=== PATIENT | female | born 1945 | race Caucasian/White ===

== ENCOUNTER 2021-09-25 08:05 | Day surgery (SDC) | payer MEDICARE, OTHER ==
[2021-09-25] VITALS (10 sets, daily range): BP systolic 123–192; BP diastolic 48–107; PULSE 69–83; TEMP 97.7–98.4
[~2021-09-25] VITALS: Ht 157.5 cm; Wt 95.1 kg
[~2021-09-25 08:05] MED LIST: ASPIRIN E.C. 8181 MG PO; BENADRYL 50M50 MG/ML; BETAPACE 120MG120 MG PO; BETAPACE 80MG80 MG PO; BETAPACE AF160 MG PO; BETAPACEAF120 PO; CARDIZEM CD 24240 MG PO; COLACE 100100 MG/CAP PO; CRESTOR 10MG10 MG PO; DESYREL 50MG50 MG PO; DILAUDID 2MG TAB2 MG PO; FERROUS SU325 MG/TAB PO; GLUCAGEN1 MG IJ; GLUCOPHAGE1000 MG PO; HCTZ 25MG TAB25 MG PO; HEPARIN LOCK FLU5 M1 IV; HUMALOG 75/2100 U/ML SQ; HUMALOG100 U/ML SC; HYZAAR 25 MG-101 TAB PO; IMDUR 30MG30 MG/TAB PO; IMDUR 60MG60 MG/TAB PO; IMODIUM 2MG CAPS2 MG PO; INSHUMULINN SQ; INVANZ INJ1 G/VIAL IV; IPRATROPIUM BROM3 M1 IH; IRON325 MG PO; KLONOPIN 1MG1 MG PO; KLONOPIN2 MG PO; LANTUS100 U/ML SC; LANTUS100 U/ML SQ; LASIX 20MG TABL20 MG PO; LASIX 40MG40 MG/4 ML IV; LEVAQUIN 750MG750 M1 PO; LEVAQUIN 7750 MG/151 IV; LEVEMIR FLEX100 U/ML SQ; LIPITOR20 MG PO; LOVENOX 4040 MG/0.4 SQ; MAG-OX 400400 MG/TAB PO; MAGNESIUM200 MG PO; MOBIC15 MG PO; MUCINEX 60600 MG/TA1 PO; MYSOLINE 5050 MG/TAB PO; NEB; NEURONTIN100 MG/CAP PO; NEURONTIN300 MG/CAP PO; NITROSTAT0.4 MG/TAB SL; NORVASC 5MG5 MG/TAB PO; NOVLOG SQ; NOVOLOG MIX 70/33 ML SQ; NS INT FLUSH 1010 ML IV; NYAMYC100000 U/G TP; OMEGA 31000 MG PO; OMNICEF 300MG300 MG PO; PERFOROMIS20 MCG/2 M IH; PREDNISONE20 MG PO; PRILOSEC 20MG20 MG PO; PROAIR HFA0.09 MG/AC IH; PROTONIX 40MG T40 MG PO; REQUIP2 MG PO; ROCEPHIN VIA1 G/VIAL IJ; RT ADVAIR 128 DISKUS IH; RT ADVAIR 228 DISKUS IH; RT ADVAIR 528 DISKUS IH; RT ALBUTER2.5 MG/0.5 IH; SOLU-MEDRO125 MG/21; STOOL SOFTENER100 M2 PO; TRILIPIX 135MG PO; TYLENOL 325MG325 MG PO; ULTRAM 50MG TAB50 MG PO; VICTOZA6 MG/ML SC; VITAMIN D 1001000 IU PO; VITAMIN D1000 IU PO; VITAMIN D31000 I1 PO; ZESTRIL40 MG PO; ZOFRAN INJ4 MG/2 ML IV
[2021-09-25 08:47] LABS: HEMATOCRIT 31.7 % (37.0-47.0); HEMOGLOBIN 10.2 g/dl (12.5-16.0); MEAN CELL VOLUME 93 fl (80.0-100.0); MEAN CORPUSCULAR HEMOGLOBIN 30 pg (27-31); MEAN CORPUSCULAR HGB CONC 32 g/dl (33.0-37.0); MEAN PLATELET VOLUME 9.8 fl (7.4-10.4); PLATELET COUNT 196 K/mm3 (130-400); REDCELL DISTRIBUTION WIDTH-CV 15.2 % (11.5-14.5)
[2021-09-25 08:59] LABS: CALCIUM 9.4 mg/dL (8.4-10.2); CREATININE, serum 1.22 mg/dL (0.57-1.11); POTASSIUM 4.3 mmol/L (3.5-4.5)
--- NOTE | 2021-09-25 11:19 | NUR ---
ANESTHESIA AT BEDSIDE FOR JEFERSON. SEE ANESTHESIA RECORD FOR MEDICATIONS AND ASSESSMENT. SEE MERGE FOR MEDICATION ADMINISTRATION AND INTRA/POST PROCEDURE SEDATION ASSESSMENTS FOR CATH.
--- NOTE | 2021-09-25 17:13 | NUR ---
Pt escorted out via wheelchair by CindyICU nurse.
--- NOTE | 2021-09-25 18:46 | NUR ---
PATIENT CAME BACK FROM PROCEDURE AT APPROX 1130; PATIENT WAS A&O AND LETHARGIC BUT STABLE. VITAL SIGNS WERE WNL LIMITS AND REMAINED WNL FOR THE DURATION. PATIENT WAS ABLE TO ADVANCE HER DIET AND ATE LUNCH AND DRANK LIQUIDS WITH NO DIFFICULTY. PATIENT LEFT BY WHEELCHAIR WITH THIS NURSE, ACCOMPANIED BY HER .
== END 2021-09-25 18:13 ==
LOC: COL.CAR 08:05
PROVIDERS: Internal Medicine Cardiovascular Disease
DX: I25.10 Atherosclerotic heart disease of native coronary artery without angina pectoris (principal); I35.0 Nonrheumatic aortic (valve) stenosis; G25.81 Restless legs syndrome; R06.02 Shortness of breath; R94.39 Abnormal result of other cardiovascular function study; Z79.899 Other long term (current) drug therapy; Z99.81 Dependence on supplemental oxygen
CPT/HCPCS: J1644; J2370; J2704; Q9967

== ENCOUNTER 2021-12-11 03:17 | Inpatient (IN) | payer MEDICARE, OTHER ==
[~2021-12-11] VITALS: Ht 154.9 cm; Wt 87.9 kg
[2021-12-11 08:57] VITALS: BP 100/37; PULSE 82; TEMP 98.6
[2021-12-11] MEDS ORDERED: BENICAR40 MG PO (10:43)
[2021-12-11] MEDS ORDERED: ASPIRIN 81M81 MG/TA2 PO (10:44)
[2021-12-11] MEDS ORDERED: ZOFRAN ODT4 MG PO (10:45)
[2021-12-11] MEDS ORDERED: DULCOLAX STOOL100 MG PO (10:45)
[2021-12-11] MEDS ORDERED: LEVEMIR100 U/ML SQ (10:46)
[2021-12-11] MEDS ORDERED: PROTONIX 40MG T40 MG PO (10:46)
[2021-12-11 11:07] VITALS: BP 101/42; PULSE 72; TEMP 98.6
[2021-12-11] MEDS ORDERED: HCTZ 25MG TAB25 MG PO (12:01)
[2021-12-11 12:09] LABS: MEAN CELL VOLUME 95 fl (80.0-100.0); MEAN CORPUSCULAR HGB CONC 32 g/dl (33.0-37.0); MEAN PLATELET VOLUME 9.7 fl (7.4-10.4); PLATELET COUNT 214 K/mm3 (130-400); RED BLOOD COUNT 3.02 M/mm3 (4.10-5.30)
[2021-12-11 12:11] LABS: HEMATOCRIT 28.8 % (37.0-47.0); HEMOGLOBIN 9.1 g/dl (12.5-16.0); MEAN CORPUSCULAR HEMOGLOBIN 30 pg (27-31)
[2021-12-11 12:27] LABS: BAND 19 % (0-10); NEUTROPHILS 75 % (42.0-75.2); PLATELET ESTIMATE NORMAL (NORMAL)
[2021-12-11 12:28] LABS: ALBUMIN 2.4 gm/dL (3.4-4.8); BILIRUBIN,TOTAL 5.1 mg/dL (0.2-1.2); CALCIUM 8.5 mg/dL (8.4-10.2); CREATININE, serum 1.47 mg/dL (0.57-1.11); POTASSIUM 4.3 mmol/L (3.5-4.5); TOTAL PROTEIN 5.9 gm/dL (6.2-8.1)
[2021-12-11 16:05] VITALS: BP 103/29; PULSE 69; TEMP 97.5
[2021-12-11 17:21] VITALS: BP 118/44
--- NOTE | 2021-12-11 17:22 | NUR ---
RN notified by PCT of low diastolic pressure. This RN took the BP manually and got a reading of 118/44.
--- NOTE | 2021-12-11 17:45 | NUR ---
Report given to Vandana at [facility].
--- NOTE | 2021-12-11 18:13 | NUR ---
Tele remvoed by this RN. Report given to [facility]. Patient on their way to [facility].
== END 2021-12-11 18:10 | disposition short-term general hospital (02) | DRG 444 ==
LOC: MEDICAL 03:17
PROVIDERS: Physician Assistant; ADMIT Internal Medicine
DX: K80.40 Calculus of bile duct with cholecystitis, unspecified, without obstruction (principal); K85.90 Acute pancreatitis without necrosis or infection, unspecified; N39.0 Urinary tract infection, site not specified; J44.9 Chronic obstructive pulmonary disease, unspecified; I10 Essential (primary) hypertension; E11.40 Type 2 diabetes mellitus with diabetic neuropathy, unspecified; K21.9 Gastro-esophageal reflux disease without esophagitis; E78.5 Hyperlipidemia, unspecified; I35.0 Nonrheumatic aortic (valve) stenosis; D64.9 Anemia, unspecified; Z85.118 Personal history of other malignant neoplasm of bronchus and lung; Z86.73 Personal history of transient ischemic attack (TIA), and cerebral infarction without residual deficits; Z79.82 Long term (current) use of aspirin; Z79.4 Long term (current) use of insulin
CPT/HCPCS: 99223-AI; J0696; J2270; J7030

== ENCOUNTER 2024-03-31 13:21 | Observation (INO) | payer MEDICARE, OTHER ==
[~2024-03-31] VITALS: Ht 152.4 cm; Wt 77.3 kg
[~2024-03-31 13:21] MED LIST changes: +ASPIRIN 81M81 MG/TA2 PO; +BENICAR40 MG PO; +DULCOLAX STOOL100 MG PO; +LEVEMIR100 U/ML SQ; -NEURONTIN300 MG/CAP PO; +NEURONTIN400 MG/CAP PO; +ZOFRAN ODT4 MG PO
[2024-03-31 14:09] LABS: COLLECTION METHOD CATHETER
[2024-03-31 14:13] LABS: URINE APPEARANCE CLEAR (CLEAR/HAZY); URINE BLOOD NEGATIVE (NEGATIVE); URINE COLOR YELLOW (YELLOW); URINE GLUCOSE NEGATIVE (NEGATIVE); URINE KETONE NEGATIVE (NEGATIVE); URINE NITRATE NEGATIVE (NEGATIVE); URINE PROTEIN(semi-quant) NEGATIVE (NEGATIVE); URINE UROBILINOGEN 0.2 E.U/dL (0.2-1.0)
[2024-03-31] MEDS ORDERED: NS 500 ML IV ONE ×2 (14:30→21:15)
[2024-03-31 14:48] LABS: BASO # 0.1 K/mm3 (0.0-0.2); BASO % 0.8 % (0.0-2.0); EOS # 0.3 K/mm3 (0.0-0.7); EOS % 3.1 % (0.0-4.0); GRAN # 5.6 K/mm3 (1.4-6.5); GRAN % 69.8 % (42.2-75.2); LYMPH # 1.3 K/mm3 (1.2-3.4); LYMPH % 16.5 % (20.0-51.0); MEAN CELL VOLUME 95 fl (80.0-100.0); MEAN CORPUSCULAR HGB CONC 30 g/dl (33.0-37.0); MEAN PLATELET VOLUME 10.2 fl (7.4-10.4); MONO # 0.8 K/mm3 (0.1-0.6); MONO % 9.5 % (1.7-9.3); PLATELET COUNT 171 K/mm3 (130-400); RED BLOOD COUNT 3.17 M/mm3 (4.10-5.30); REDCELL DISTRIBUTION WIDTH-CV 15.1 % (11.5-14.5)
[2024-03-31 14:51] LABS: HEMOGLOBIN 9.1 g/dl (12.5-16.0); MEAN CORPUSCULAR HEMOGLOBIN 29 pg (27-31)
[2024-03-31 15:06] LABS: ALBUMIN 3.5 g/dL (3.4-4.8); BILIRUBIN,TOTAL 0.2 mg/dL (0.2-1.2); C-REACTIVE PROTEIN 0.65 mg/dL (0.00-0.50); CALCIUM 9.4 mg/dL (8.4-10.2); CREATININE, serum 1.48 mg/dL (0.57-1.11); TOTAL PROTEIN 6.3 g/dl (6.2-8.1)
[2024-03-31 15:08] LABS: POTASSIUM 5.8 mEq/L (3.5-4.5)
[2024-03-31 15:11] LABS: TROPONIN-I 0.016 ng/mL (0.00-0.033)
[2024-03-31] MEDS ORDERED: NOVOLOG FLEX100 U/ML SQ (15:11)
[2024-03-31] MEDS ORDERED: IMODIUM 2MG CAPS2 MG PO (15:16)
[2024-03-31] MEDS ORDERED: KEPPRA1000 MG PO (15:18)
[2024-03-31] MEDS ORDERED: COZAAR100 MG PO (15:19)
[2024-03-31] MEDS ORDERED: MAG-OX 400400 MG/TAB PO (15:20)
[2024-03-31] MEDS ORDERED: GLUCOPHAGE1000 MG PO (15:21)
[2024-03-31] MEDS ORDERED: TOPROL XL 25MG25 MG PO (15:23)
[2024-03-31] MEDS ORDERED: REMERON SOLTAB15 MG PO (15:23)
[2024-03-31] MEDS ORDERED: MS CONTIN 115 MG/TAB PO (15:24)
[2024-03-31] MEDS ORDERED: MULTI-VITAMIN W1 TA1 PO (15:25)
[2024-03-31] MEDS ORDERED: NORVASC 5MG5 MG/TAB PO (15:27)
[2024-03-31] MEDS ORDERED: PLAVIX 75MG TAB75 MG PO (15:28)
[2024-03-31] MEDS ORDERED: LIPITOR 10MG10 MG PO (15:28)
[2024-03-31] MEDS ORDERED: RT ADVAIR HFA 2312 G IH (15:30)
[2024-03-31] MEDS ORDERED: K-DUR 10 MEQ T10 MEQ PO (15:31)
[2024-03-31] MEDS ORDERED: LASIX 20MG TABL20 MG PO (15:31)
[2024-03-31] MEDS ORDERED: REQUIP0.25 MG PO (15:34)
[2024-03-31] MEDS ORDERED: ZOLOFT 50MG50 MG PO (15:34)
[2024-03-31] MEDS ORDERED: Furosemide 40 MG/4 ML VIAL IV ONE (16:00)
[2024-03-31] MEDS ORDERED: Patiromer 8.4 G Oral Susp **** subs to Sodium Zirconium Cyclosilicate 10 G Oral Susp PO SCH (16:16)
[2024-03-31] MEDS ORDERED: Sodium Zirconium Cyclosilicate for Oral Susp 10 GM PACKET PO SCH (16:43)
--- NOTE | 2024-03-31 17:47 | NUR ---
Patient arrived from the ED by wheelchair, alert and oriented to self. Assessment intake completed.
[2024-03-31 17:50] VITALS: BP 148/83; PULSE 61; TEMP 96.5
[2024-03-31] MEDS ORDERED: Doxycycline Monohydrate 100 MG CAP PO SCH (18:07)
[2024-03-31] MEDS ORDERED: Clindamycin 150 MG CAP PO SCH (18:15)
[2024-03-31 18:20] VITALS: BP_SYST 148
[2024-03-31 21:00] VITALS: BP_SYST 106
--- NOTE | 2024-03-31 21:30 | NUR ---
Patient resting in bed. Denies any pain. Juice and snack provided. Lab for repeat potassium drawn from left forearm. Assessment complete. IV in left AC flushes easily without complications. Call light and personal items in reach. Bed in low position and bed alarm on.
[2024-03-31 21:59] VITALS: BP 106/64; PULSE 88; TEMP 98
[2024-03-31 22:58] LABS: CALCIUM 8.4 mg/dL (8.4-10.2); CREATININE, serum 1.31 mg/dL (0.57-1.11); POTASSIUM 5.4 mEq/L (3.5-4.5)
[2024-04-01] VITALS (13 sets, daily range): BP systolic 106–147; BP diastolic 51–81; PULSE 57–68; TEMP 97.4–98.3
[2024-04-01] MEDS ORDERED: traMADol 50 MG TAB PO PRN (02:45)
[2024-04-01] MEDS ORDERED: NS 500 ML IV ONE (03:00)
--- NOTE | 2024-04-01 07:10 | NUR ---
awake resting in bed, MARINE FITTER in and assisted her up to bathroom, bedside shift report received from BOBBY Menendez
[2024-04-01 07:14] LABS: BASO % 0.7 % (0.0-2.0); EOS # 0.3 K/mm3 (0.0-0.7); EOS % 4.7 % (0.0-4.0); GRAN # 3.4 K/mm3 (1.4-6.5); GRAN % 59.5 % (42.2-75.2); HEMATOCRIT 27.4 % (37.0-47.0); HEMOGLOBIN 8.6 g/dl (12.5-16.0); LYMPH # 1.2 K/mm3 (1.2-3.4); LYMPH % 21.7 % (20.0-51.0); MEAN CELL VOLUME 91 fl (80.0-100.0); MEAN CORPUSCULAR HEMOGLOBIN 29 pg (27-31); MEAN CORPUSCULAR HGB CONC 31 g/dl (33.0-37.0); MEAN PLATELET VOLUME 10.5 fl (7.4-10.4); MONO # 0.7 K/mm3 (0.1-0.6); MONO % 12.9 % (1.7-9.3); PLATELET COUNT 145 K/mm3 (130-400); REDCELL DISTRIBUTION WIDTH-CV 15.1 % (11.5-14.5)
[2024-04-01 07:25] LABS: ALBUMIN 2.9 g/dL (3.4-4.8); CALCIUM 8.3 mg/dL (8.4-10.2); CREATININE, serum 1.17 mg/dL (0.57-1.11); PHOSPHOROUS 5.2 mg/dL (2.3-4.7); POTASSIUM 5.2 mEq/L (3.5-4.5)
[2024-04-01] MEDS ORDERED: MIRTAZAPINE 15 MG PO SCH (08:40)
[2024-04-01] MEDS ORDERED: Atorvastatin 10 MG TAB PO SCH (08:40)
[2024-04-01] MEDS ORDERED: rOPINIRole 0.5 MG TAB PO SCH (08:43)
[2024-04-01] MEDS ORDERED: Albuterol 0.021% Neb Soln 0.63 MG/3 ML UD IH PRN (08:45)
[2024-04-01] MEDS ORDERED: Loperamide 2 MG CAP PO PRN (08:45)
[2024-04-01] MEDS ORDERED: Albuterol/Ipratropium 3 MG-0.5 MG/3 ML Neb Soln IH PRN (08:45)
--- NOTE | 2024-04-01 08:47 | NUR ---
appears to be dozing, Dr Minor in to see patient, will order her breakfst and encourage her to eat
[2024-04-01] MEDS ORDERED: Primidone 50 MG TAB PO SCH (09:00)
[2024-04-01] MEDS ORDERED: Furosemide 20 MG TAB PO SCH (09:00)
[2024-04-01] MEDS ORDERED: Sertraline 50 MG TAB PO SCH (09:00)
[2024-04-01] MEDS ORDERED: Clopidogrel 75 MG TAB PO SCH (09:00)
[2024-04-01] MEDS ORDERED: Gabapentin 400 MG CAP PO SCH (09:00)
[2024-04-01] MEDS ORDERED: amLODIPine 5 MG TAB PO SCH (09:00)
[2024-04-01] MEDS ORDERED: Magnesium Oxide 400 MG TAB PO SCH (09:00)
[2024-04-01] MEDS ORDERED: levETIRAcetam 500 MG TAB PO SCH (09:00)
--- NOTE | 2024-04-01 09:05 | NUR ---
physical and occupational therapy in to work with patient, assisting her up to bathroom, moves with slow steady gait
--- NOTE | 2024-04-01 09:30 | NUR ---
sitting up in recliner eawting breakfst
[2024-04-01 09:58] LABS: ARTERIAL BLD GAS O2 SATURATION 96.9 % (92-100); ARTERIAL BLD GAS TCO2 CT 26.5; ARTERIAL BLOOD GAS BASE EXCESS -2.2 (-2-2); ARTERIAL BLOOD GAS HCO3 24.8 meq/L (22-26); ARTERIAL BLOOD GAS PCO2 54.2 mmHg (35-45); ARTERIAL BLOOD GAS PO2 104.9 mmHg (80-100); ARTERIAL BLOOD GAS pH 7.28 (7.35-7.45)
--- NOTE | 2024-04-01 10:29 | NUR ---
assisted back to bed by DIRECTOR OF PARTNERSHIPS, full assessment completed, see interventions for further info, is ready to try and take a nap, denies needs
[2024-04-01] MEDS ORDERED: metFORMIN 500 MG TAB PO SCH (12:00)
--- NOTE | 2024-04-01 12:01 | NUR ---
up to bathroom with assistance of SMELLER
--- NOTE | 2024-04-01 14:13 | NUR ---
bedside shift report given to BOBBY Bustillos
--- NOTE | 2024-04-01 14:30 | NUR ---
PATIENT ASLEEP, RESTING IN BED. CALL LIGHT WITHIN REACH. PATIENTS RESPIRATIONS WITHIN NORMAL LIMITS.
--- NOTE | 2024-04-01 14:59 | NUR ---
Met with pt- heidi Singh SW Mallory Y. Pt has been downgraded to OBS. Reviewed the [place] form with them and answered all of their questions. The son voiced understanding.
--- NOTE | 2024-04-01 15:22 | NUR ---
Architecture Intern met with patient to discuss discharge planning. Patient lives in [place] with her son, Trip (ph#[phone]) and daughter, Beverly. Patient sees Dr. Becerra for primary care and gets medications from [facility] pharmacy. Patient does not drive and relies on family for transportation. Patient uses a walker for ambulation and reports she is independent with getting to the bathroom and getting dressed. Patient stated she has assistance with bathing from [facility]. Patient reported her DPOA-HC designates her children, Trip and Beverly. Patient plans to return home at time of discharge. JESSE faxed clinical updates to [facility]. JESSE and RnIvana POLLACK met with patient and son, Trip at bedside to notify them that patient was downgraded to observation status. JESSE presented DERAS form which Trip signed on patient's behalf (per patient's request). JESSE placed form in chart and provided copy to patient. Discharge Plan; Home with [facility]
--- NOTE | 2024-04-01 21:00 | NUR ---
Initial shift assessment done- has been sleeping soundly since start of shift, now awake and up to bathroom with assist/walker- back to bed, states having severe back pain 03/05 -would like her MS contin at this time-- will give as ordered, Tele on-paced, accu check was 100 tonight-- will give a HS snack at this time, o2 at 2L/nc, is refusing her SCD,s. Alert/oreinted x4.
[2024-04-02 00:10] VITALS: BP_SYST 146
[2024-04-02 03:46] VITALS: BP 134/67; PULSE 71; TEMP 98
[2024-04-02 04:40] VITALS: BP_SYST 134
--- NOTE | 2024-04-02 06:15 | NUR ---
Has been sleeping well all night-- VSS, Up to bathroom x2 to void.
[2024-04-02 06:58] LABS: BASO % 0.5 % (0.0-2.0); EOS # 0.3 K/mm3 (0.0-0.7); EOS % 4.9 % (0.0-4.0); GRAN # 3.6 K/mm3 (1.4-6.5); GRAN % 62.2 % (42.2-75.2); LYMPH # 1.2 K/mm3 (1.2-3.4); LYMPH % 20.3 % (20.0-51.0); MEAN CELL VOLUME 90 fl (80.0-100.0); MEAN CORPUSCULAR HGB CONC 32 g/dl (33.0-37.0); MEAN PLATELET VOLUME 10.2 fl (7.4-10.4); MONO # 0.7 K/mm3 (0.1-0.6); MONO % 11.8 % (1.7-9.3); RED BLOOD COUNT 3.04 M/mm3 (4.10-5.30); REDCELL DISTRIBUTION WIDTH-CV 14.7 % (11.5-14.5)
[2024-04-02 07:30] LABS: CALCIUM 8.9 mg/dL (8.4-10.2); CREATININE, serum 0.97 mg/dL (0.57-1.11); PHOSPHOROUS 3.5 mg/dL (2.3-4.7); POTASSIUM 4.8 mEq/L (3.5-4.5)
[2024-04-02 07:40] VITALS: BP 145/80; PULSE 68; TEMP 98.6
[2024-04-02 08:33] LABS: HEMATOCRIT 27.4 % (37.0-47.0); HEMOGLOBIN 8.8 g/dl (12.5-16.0); MEAN CORPUSCULAR HEMOGLOBIN 29 pg (27-31)
[2024-04-02 08:34] LABS: PLATELET COUNT 177 K/mm3 (130-400)
[2024-04-02 11:27] VITALS: BP 143/64; PULSE 71; TEMP 97.5
--- NOTE | 2024-04-02 11:30 | NUR ---
PATIENTS FAMILY STATED KANDICE PATIENT HAD AN IRREGULAR RYTHM AT THE [facility]ELOPMENT [facility]ESSION[facility] OFFICE AND THAT WAS ONE OF THE REASONS SHE WAS BROUGHT TO THE ER. THIS RN SPOKE WITH DR SWIFT. PER DR SWIFT HER ADMISSION HAS NOTHING TO DO WITH HER ADMISSION. PATIENT WAS AT THE [facility] OFFICE FOR A FOLLOW UP AND THE NUCLEAR PHYSICS TEACHER NOTICED THE P[ATIENT DID NOT APPEAR TO BE WELL. HOWEVER SHE HAD NO CARDIAC ISSUES. THIS INFORMATIONWAS PASSED ALONG TO THE PATIENT AND ER DAUGHTER
[2024-04-02] MEDS ORDERED: APRESOLINE 25MG25 MG PO (11:44)
[2024-04-02 12:30] VITALS: BP_SYST 143
--- NOTE | 2024-04-02 12:52 | NUR ---
PATIENT IV AND TELE REMOVED. PATIENT GIVEN DICHARGE INSTRUCTIONS AND EDUCATION. PATINET TAKEN TO ER ENTRANCE VIA WHEELCHAIR BY PCT. PATIENT WAS PLACE DON HER HOME O2 AND TAKEN HOME BY HER SON. PATEINT LEFT AWAKE AND ALERT IN STABLE CONDITION
--- NOTE | 2024-04-04 10:25 | NUR ---
hot blast worker contacted [facility] and confirmed that they were notified of patient's discharge on 04/02/24 and that orders were faxed. [facility] is starting patient for services this date.
== END 2024-04-02 12:50 | disposition home or self-care (01) ==
LOC: COL.ER 13:21 → MEDICAL 16:15 → COL.ER 16:15 → MEDICAL 16:15
PROVIDERS: Emergency Medicine; Internal Medicine; ADMIT Internal Medicine
DX: E87.5 Hyperkalemia (principal); J44.9 Chronic obstructive pulmonary disease, unspecified; G47.00 Insomnia, unspecified; J98.11 Atelectasis; I35.0 Nonrheumatic aortic (valve) stenosis; I10 Essential (primary) hypertension; E11.40 Type 2 diabetes mellitus with diabetic neuropathy, unspecified; K21.9 Gastro-esophageal reflux disease without esophagitis; E78.5 Hyperlipidemia, unspecified; R25.1 Tremor, unspecified; Z99.81 Dependence on supplemental oxygen; Z79.899 Other long term (current) drug therapy; Z79.84 Long term (current) use of oral hypoglycemic drugs; Z79.82 Long term (current) use of aspirin; Z79.02 Long term (current) use of antithrombotics/antiplatelets; Z79.4 Long term (current) use of insulin; Z87.440 Personal history of urinary (tract) infections
CPT/HCPCS: OP; A9270; G0378; J1940; J7040

== ENCOUNTER 2024-05-08 20:26 | Inpatient (IN) | payer MEDICARE, OTHER ==
[~2024-05-08] VITALS: Ht 160 cm; Wt 80.8 kg
[~2024-05-08 20:26] MED LIST changes: +APRESOLINE 25MG25 MG PO; +COZAAR100 MG PO; +K-DUR 10 MEQ T10 MEQ PO; +KEPPRA1000 MG PO; +LIPITOR 10MG10 MG PO; +MS CONTIN 115 MG/TAB PO; +MULTI-VITAMIN W1 TA1 PO; +NOVOLOG FLEX100 U/ML SQ; +PLAVIX 75MG TAB75 MG PO; +REMERON SOLTAB15 MG PO; +REQUIP0.25 MG PO; +RT ADVAIR HFA 2312 G IH; +TOPROL XL 25MG25 MG PO; +ZOLOFT 50MG50 MG PO
[2024-05-08 21:12] LABS: BASO # 0.1 K/mm3 (0.0-0.2); BASO % 0.5 % (0.0-2.0); EOS # 0.2 K/mm3 (0.0-0.7); EOS % 1.8 % (0.0-4.0); GRAN # 7.2 K/mm3 (1.4-6.5); GRAN % 73.3 % (42.2-75.2); LYMPH # 1.2 K/mm3 (1.2-3.4); LYMPH % 12.2 % (20.0-51.0); MEAN CELL VOLUME 87 fl (80.0-100.0); MEAN CORPUSCULAR HGB CONC 34 g/dl (33.0-37.0); MEAN PLATELET VOLUME 9.9 fl (7.4-10.4); MONO # 1.2 K/mm3 (0.1-0.6); MONO % 11.9 % (1.7-9.3); PLATELET COUNT 175 K/mm3 (130-400); RED BLOOD COUNT 3.11 M/mm3 (4.10-5.30); REDCELL DISTRIBUTION WIDTH-CV 13.9 % (11.5-14.5)
[2024-05-08 21:13] LABS: HEMOGLOBIN 9.1 g/dl (12.5-16.0); MEAN CORPUSCULAR HEMOGLOBIN 29 pg (27-31)
[2024-05-08 21:29] LABS: ALBUMIN 3.8 g/dL (3.4-4.8); BILIRUBIN,TOTAL 0.3 mg/dL (0.2-1.2); CALCIUM 9.3 mg/dL (8.4-10.2); CREATININE, serum 0.92 mg/dL (0.57-1.11); MAGNESIUM 1.9 mg/dL (1.6-2.6); POTASSIUM 5.1 mEq/L (3.5-4.5); TOTAL PROTEIN 6.9 g/dl (6.2-8.1)
[2024-05-08 21:35] LABS: TROPONIN-I 0.023 ng/mL (0.00-0.033)
[2024-05-08] MEDS ORDERED: NS 500 ML IV ONE (22:00)
[2024-05-08 22:10] LABS: COLLECTION METHOD CATHETER
[2024-05-08 22:13] LABS: URINE APPEARANCE CLEAR (CLEAR/HAZY); URINE BLOOD NEGATIVE (NEGATIVE); URINE COLOR YELLOW (YELLOW); URINE GLUCOSE NEGATIVE (NEGATIVE); URINE KETONE NEGATIVE (NEGATIVE); URINE NITRATE NEGATIVE (NEGATIVE); URINE PROTEIN(semi-quant) NEGATIVE (NEGATIVE); URINE UROBILINOGEN 0.2 E.U/dL (0.2-1.0)
[2024-05-08] MEDS ORDERED: levETIRAcetam 1,000 MG in Syringe 1 EACH IV SCH (23:59)
[2024-05-09] VITALS (363 sets, daily range): BP systolic 105–126; BP diastolic 51–54; PULSE 59–73; TEMP 97.4–98.3; O2SAT 54–100
[2024-05-09 00:06] LABS: CALCIUM 8.6 mg/dL (8.4-10.2); CREATININE, serum 0.85 mg/dL (0.57-1.11); POTASSIUM 4.7 mEq/L (3.5-4.5)
[2024-05-09] MEDS ORDERED: NS 1,000 ML IV SCH (00:15)
[2024-05-09] MEDS ORDERED: MS CONTIN 115 MG/TAB PO (02:13)
[2024-05-09] MEDS ORDERED: APRESOLINE 25MG25 MG PO (02:14)
[2024-05-09] MEDS ORDERED: Heparin/D5W 250 ML IV SCH (02:15)
[2024-05-09] MEDS ORDERED: Heparin 5,000 UNITS/ML 1 ML VIAL IV PRN (02:15)
[2024-05-09] MEDS ORDERED: Heparin 5,000 UNITS/ML 1 ML VIAL IV ONE (02:15)
--- NOTE | 2024-05-09 02:22 | NUR ---
RECIEVED REPORT FROM ED RN IBETH. PATIENT ARRIVED TO [facility] AROUND 0100. ONLY BELONGINGS WERE SHOES AND WERE WITH PATIENT AT TIME OF TRANSFER. PATIENT ORIENTED TO ROOM. NO ACUTE EVENTS.
[2024-05-09 03:10] LABS: CALCIUM 7.7 mg/dL (8.4-10.2); CREATININE, serum 0.73 mg/dL (0.57-1.11); PHOSPHOROUS 3.3 mg/dL (2.3-4.7); POTASSIUM 4.1 mEq/L (3.5-4.5)
[2024-05-09 03:31] LABS: TSH w REFLEX 1.87 uIU/mL (0.350-4.940)
[2024-05-09] MEDS ORDERED: D5W 1,000 ML IV SCH (04:00)
[2024-05-09 05:35] LABS: CALCIUM 8.8 mg/dL (8.4-10.2); CREATININE, serum 0.83 mg/dL (0.57-1.11); POTASSIUM 4.5 mEq/L (3.5-4.5)
[2024-05-09] MEDS ORDERED: Insulin Lispro (HumaLOG) SQ SCH (06:00)
[2024-05-09 07:10] LABS: BASO % 0.6 % (0.0-2.0); EOS # 0.2 K/mm3 (0.0-0.7); EOS % 3.3 % (0.0-4.0); GRAN # 3.2 K/mm3 (1.4-6.5); LYMPH % 19.8 % (20.0-51.0); MEAN CELL VOLUME 86 fl (80.0-100.0); MEAN CORPUSCULAR HGB CONC 35 g/dl (33.0-37.0); MEAN PLATELET VOLUME 10.2 fl (7.4-10.4); MONO # 0.7 K/mm3 (0.1-0.6); MONO % 14.1 % (1.7-9.3); PLATELET COUNT 140 K/mm3 (130-400); RED BLOOD COUNT 2.74 M/mm3 (4.10-5.30); REDCELL DISTRIBUTION WIDTH-CV 13.6 % (11.5-14.5)
[2024-05-09 07:14] LABS: HEMATOCRIT 23.5 % (37.0-47.0); HEMOGLOBIN 8.1 g/dl (12.5-16.0); MEAN CORPUSCULAR HEMOGLOBIN 30 pg (27-31)
[2024-05-09 07:22] LABS: CALCIUM 8.7 mg/dL (8.4-10.2); CREATININE, serum 0.82 mg/dL (0.57-1.11); POTASSIUM 4.4 mEq/L (3.5-4.5)
[2024-05-09] MEDS ORDERED: Dextrose (Glucose) 15 GM (4 x 3.75 GM) Chewable TABLET PACK PO PRN (09:00)
[2024-05-09] MEDS ORDERED: Sertraline 50 MG TAB PO SCH (09:00)
[2024-05-09] MEDS ORDERED: Losartan 50 MG TAB PO SCH (09:00)
[2024-05-09] MEDS ORDERED: Dextrose 50% Water 25 GM/50 ML SYRINGE IV PRN (09:00)
[2024-05-09] MEDS ORDERED: hydrALAZINE 25 MG TAB PO SCH ×2 (09:00→21:00)
[2024-05-09] MEDS ORDERED: Magnesium Oxide 400 MG TAB PO SCH (09:00)
[2024-05-09] MEDS ORDERED: Clopidogrel 75 MG TAB PO SCH (09:00)
[2024-05-09] MEDS ORDERED: Gabapentin 400 MG CAP PO SCH (09:00)
[2024-05-09] MEDS ORDERED: Loperamide 2 MG CAP PO SCH (09:00)
[2024-05-09] MEDS ORDERED: amLODIPine 5 MG TAB PO SCH (09:00)
[2024-05-09] MEDS ORDERED: Influenza Virus Vaccine, Hi-Dose Triv '24-25 (65 YR+) 0.5 ML SYRINGE IM SCH (09:00)
[2024-05-09] MEDS ORDERED: Primidone 50 MG TAB PO SCH (09:00)
[2024-05-09] MEDS ORDERED: Glucagon 1 MG VIAL IM PRN (09:00)
--- NOTE | 2024-05-09 10:13 | NUR ---
idea worker met with patient and her daughter, Beverly, P# [phone], to discuss discharge plan. Patient was sleeping during most of the conversation. Beverly reports patient lives in [place] and Beverly and her brother ( Trip P# [phone]) moved in with patient after patient's passed in September. PCP is Dr. Becerra, Pharmacy [facility]. No issues affording medications. Insurance is Medicare A and B and Beverly believes the secondary is Xspand but was not certain. Patient has a DPOA-HC in the EMR, appointing Marquez as primary, Beverly as secondary and Trip as third agent. Beverly reports Marquez was patient's whom , so she and her brother are the DPOA-HC. Beverly reports patient uses a walker at home, has a wheelchair when needed and a shower chair. Patient receives assistance with most of her ADLS. Beverly reports patient can dress herself but has home health services for bath aides twice a week and she helps patient in the evening. Beverly reports yesterday patient needed her and Trip to both help her to stand yesterday. Patient's home health is [facility] [place]. JESSE explained the PT and OT team would evaluate patient while she is in the hospital but based on her needing a two person assist yesterday, she may need rehab upon discharge. SW explained SNF, swing bed and IPR. Beverly mentioned patient had been to [place] rehab in the past and if patient is a candidate she would prefer the IPR in this hospital. Beverly reported if she were not a candidate for IPR, she would look at either [place] [facility] or [place]. SW provided the Medicare.gov list of options for SNF. Beverly reported they would not want patient to live at retirement but would be open to rehab at a nursing facility if swing bed could not accept. JESSE discussed hospice due to the history and physical reporting patient had a conversation about this recently but determined she was not ready for it. Beverly reports they discussed hospice on Thursday and patient stated she was not ready for it but she reports patient has had a significant declie since her passed. At this time Beverly was interested to hear from the hospitalist if patient would qualify for hospice and wants to see how patient does with PT and OT. SW provided her contact information and reported she would continue to follow along. Discharge plan: pending medical status and PT/OT evals
--- NOTE | 2024-05-09 11:00 | NUR ---
PATIENT RESTING IN BED. DROWSY BUT RESPONSIVE TO QUESTIONS, AND TAKE PILLS WITH NO ISSUES. PATIENT IS NPO, BUT WAS ABLE TO SWALLOW PILLS WITH NO ISSUE AND A SMALL AMOUNT OF WATER. PATIENT DAUGHTER AT BEDSIDE. BED IN LOW POSITION, BED ALARM ON, CALL LIGHT IN REACH
--- NOTE | 2024-05-09 11:54 | NUR ---
terrazzo worker helper faxed clinical updates to [facility].
[2024-05-09 12:22] LABS: PROTHROMBIN TIME 11.4 SECONDS (9.7-12.8)
[2024-05-09 12:23] LABS: CALCIUM 8.9 mg/dL (8.4-10.2); CREATININE, serum 0.74 mg/dL (0.57-1.11); POTASSIUM 4.6 mEq/L (3.5-4.5)
--- NOTE | 2024-05-09 12:48 | NUR ---
warehouse worker attended interdisciplinary clinical rounding with Dr. Radford. JESSE, Kati Clarke (ICU line department supervisor), Beverly (patient's daughter) and patient met and discussed goals of care. Beverly called patient's son, Trip, to involve him in this conversation. Patient was very quiet during this conversation and was asked a couple times if she understood and she continued to stare towards the wall. Trip reported he would be by later today and would like to discuss this with patient. Beverly stated Trip would likely be here around 3 pm. Beverly explained she and Trip live with patient and her niece comes help whenever needed as well. Beverly reported Trip works from home so patient has 24/7 care at home currently along with [facility] services. JESSE will follow up with family after Trip meets with patient to discuss her wishes for discharge plan.
--- NOTE | 2024-05-09 14:36 | NUR ---
garbage depot worker was notified by PTIlene, regarding recommendations. PT and OT are recommending either home with continued 24/7 care and home health or swing bed as the daughter reported they would not consider taking patient to a SNF. SW attended the multidisciplinary meeting to discuss discharge plan. Patient and family will be discussing options at 3 pm for either home with continued 24/7 care and home health, swing bed or hospice. SW will follow up regarding the family and patient's decision. Discharge plan: Pending family/patient decision
[2024-05-09 14:53] LABS: CREATININE, serum 0.76 mg/dL (0.57-1.11); POTASSIUM 4.7 mEq/L (3.5-4.5)
[2024-05-09] MEDS ORDERED: REMERON SOLTAB15 MG PO (17:33)
--- NOTE | 2024-05-09 18:53 | NUR ---
AT THE BEGINNING OF THE SHIFT, AND THROUGHOUT MOST OF THE SHIFT PATIENT WAS CLOUDED AND DROWSY. AT 1700 PATIENT IS AWAKE, ALERT, ORIENTED, TALKATIVE, EATING 100% OF HER MEALS AND HAVING FULL CONVERSATIONS WITH FAMILY MEMBERS AND STAFF. VERBALIZING NEEDS APPROPRIATELY
--- NOTE | 2024-05-09 19:20 | NUR ---
Received report from Vera Camara RN. Pt is alert and sitting up in bed. Vitals are stable at this time. No IVF's or drips running at this time. Bed in low position, bed alarms on, and call light within reach. Bojorquez in place with no kinks in tubing. Will continue with pt care.
[2024-05-09] MEDS ORDERED: rOPINIRole 0.5 MG TAB PO SCH (21:00)
[2024-05-09] MEDS ORDERED: Atorvastatin 10 MG TAB PO SCH (21:00)
[2024-05-09] MEDS ORDERED: Amiodarone 200 MG TAB PO SCH (21:00)
--- NOTE | 2024-05-09 22:30 | NUR ---
During the 1999 assessment pt's PICC line dressing had drainage/blood. This nurse used a sterile technique to change the dressing to assess and see if the line is still having drainage. Will continue to assess the site.
[2024-05-10] VITALS (242 sets, daily range): BP systolic 99–153; BP diastolic 43–100; PULSE 57–74; TEMP 97.9–98.5; O2SAT 83–100
[2024-05-10 05:34] LABS: BASO % 0.3 % (0.0-2.0); EOS # 0.2 K/mm3 (0.0-0.7); EOS % 3.4 % (0.0-4.0); GRAN # 3.9 K/mm3 (1.4-6.5); GRAN % 66.5 % (42.2-75.2); LYMPH # 0.9 K/mm3 (1.2-3.4); LYMPH % 16.1 % (20.0-51.0); MEAN CELL VOLUME 90 fl (80.0-100.0); MEAN CORPUSCULAR HGB CONC 32 g/dl (33.0-37.0); MEAN PLATELET VOLUME 9.9 fl (7.4-10.4); MONO # 0.8 K/mm3 (0.1-0.6); MONO % 13.5 % (1.7-9.3); PLATELET COUNT 154 K/mm3 (130-400); RED BLOOD COUNT 2.57 M/mm3 (4.10-5.30); REDCELL DISTRIBUTION WIDTH-CV 13.5 % (11.5-14.5)
[2024-05-10 05:57] LABS: HEMOGLOBIN 7.4 g/dl (12.5-16.0); MEAN CORPUSCULAR HEMOGLOBIN 29 pg (27-31)
[2024-05-10 06:00] LABS: CALCIUM 8.6 mg/dL (8.4-10.2); CREATININE, serum 0.83 mg/dL (0.57-1.11); POTASSIUM 5.1 mEq/L (3.5-4.5)
--- NOTE | 2024-05-10 06:08 | NUR ---
Pt had an uneventful night. Bed bath was given at the beginning of the shift and washed pt's hair. Changed pt's PICC line dressing. The PICC line has stopped bleeding and the dressing is currently clean with no drainage. Vitals have been stable throughout the night. Bojorquez in place with no kinks in tubing. Had adequate urine output. No IVF's or drips running at this time. Pt is currently resting in bed with call light within reach, bed in low position, and bed alarms on. Will give report to day shift nurse.
--- NOTE | 2024-05-10 07:00 | NUR ---
REPORT RECIEVED FROM SHASHANK Mccall RN. PT RESTING IN BED, VSS, ON 3L O2 PER NC. NO DRIPS INFUSING AT THIS TIME. PICC LINE TO R UPPER ARM WNL. RANDALL CATHETER IN PLACE TO DEPENDENT DRAINAGE. PT IS ORIENTED X4 AND USES CALL LIGHT FOR NEEDS, BED ALARM IN PLACE FOR PT SAFETY.
--- NOTE | 2024-05-10 13:04 | NUR ---
front desk worker followed up with Beverly, patient's daughter, regarding the discussion of hospice vs rehab. Beverly expressed she, her brother and patient discussed this and do not feel patient is ready for hospice. Family and patient chose for patient to go to rehab in a swing bed unit. Beverly, daughter, would like referral sent to [facility]. JESSE attended interdisciplinary clinical rounding with Dr. Radford and updated her on the conversation patient's family had with patient. Patient will be moving to the medical floor. SW faxed referral to [facility]. JESSE updated medical floor social worker health services, [facility], on this information. Discharge plan: Swing Bed
--- NOTE | 2024-05-10 15:01 | NUR ---
Blood consent signed by pt daughter, Beverly. Blood verified by second RN, Becki. Transfusion started at 60ml/hr. Will remain at bedside for first 15 minutes to montitor for transfuion reaction.
--- NOTE | 2024-05-10 17:58 | NUR ---
PATIENT RECIEVED ONE UNIT OF BLOOD, VITAL SIGNS STABLE THROUGHOUT ADMINISTRATION. NO SIGNS OF TRANSFUSION REACTION. NO COMPLAINTS FROM PATIENT. WILL CONTINUE TO MONITOR AND FOLLOW PLAN OF CARE. PATIENT IS VISITING WITH FAMILY WITH CALL LIGHT WITHIN REACH.
--- NOTE | 2024-05-10 19:22 | NUR ---
PT BOOSTED UP IN BED. PT WORKING ON A [employer] PROJECT. RESPIRATIONS EVEN AND UNALBORED. NO SIGN OF DISTRESS AT THIS TIME. CONTINUE PLAN OF CARE.
--- NOTE | 2024-05-10 20:00 | NUR ---
MOISTURE CREAM APPLIED TO BILATERAL HEALS. FOAM DRESSING APPLIED TO RIGHT HEAL. RESPIRATIONS EVEN AND UNLABORED. NO SIGN OF DISTRESS AT THIS TIME. CONTINUE PLAN OF CARE. PLAN IS FOR PATIENT TO GO TO SWING BED.
[2024-05-10] MEDS ORDERED: levETIRAcetam 500 MG TAB PO SCH (21:00)
[2024-05-11] VITALS (146 sets, daily range): BP systolic 109–150; BP diastolic 51–90; PULSE 64–74; TEMP 97.6–99.1; O2SAT 92–100
[2024-05-11 06:09] LABS: BASO % 0.4 % (0.0-2.0); EOS # 0.2 K/mm3 (0.0-0.7); EOS % 3.4 % (0.0-4.0); GRAN # 4.5 K/mm3 (1.4-6.5); GRAN % 67.1 % (42.2-75.2); LYMPH % 14.7 % (20.0-51.0); MEAN CELL VOLUME 89 fl (80.0-100.0); MEAN CORPUSCULAR HGB CONC 33 g/dl (33.0-37.0); MEAN PLATELET VOLUME 10.1 fl (7.4-10.4); MONO # 0.9 K/mm3 (0.1-0.6); MONO % 14.1 % (1.7-9.3); PLATELET COUNT 156 K/mm3 (130-400); RED BLOOD COUNT 2.84 M/mm3 (4.10-5.30); REDCELL DISTRIBUTION WIDTH-CV 13.8 % (11.5-14.5)
[2024-05-11 06:19] LABS: HEMATOCRIT 25.2 % (37.0-47.0); HEMOGLOBIN 8.4 g/dl (12.5-16.0); MEAN CORPUSCULAR HEMOGLOBIN 30 pg (27-31)
[2024-05-11 06:28] LABS: ALBUMIN 2.8 g/dL (3.4-4.8); BILIRUBIN,TOTAL 0.3 mg/dL (0.2-1.2); CALCIUM 8.6 mg/dL (8.4-10.2); CREATININE, serum 0.93 mg/dL (0.57-1.11); POTASSIUM 4.7 mEq/L (3.5-4.5); TOTAL PROTEIN 5.1 g/dl (6.2-8.1)
--- NOTE | 2024-05-11 06:56 | NUR ---
PT STABLE OVERNIGHT. WOULD BENEFIT FROM PT/OT. RESPIRATIONS EVEN AND UNLABORED. NO SIGN OF DISTRESS. PLAN FOR SWING BED.
--- NOTE | 2024-05-11 11:41 | NUR ---
before and after school daycare worker followed up with [facility] whom expressed they have received it but have not been able to review yet. They wanted to know when patient would be ready for discharge. JESSE explained she would follow up after doctor rounds with her. JESSE contacted [facility] whom expressed they were uncertain if they received it but were going to check their fax and call the social research assistant back. JESSE attended the interdisciplinary clinical rounding with Dr. Munroe with the patient's daughter, Beverly, present. Patient will be able to discharge to swing bed once approved. Patient should move to the medical floor today if there is a bed available. SW left a voicemail for [facility] explaining patient is able to discharge once approved for swing bed. JESSE will follow up. Discharge plan: Swing Bed pending approval
--- NOTE | 2024-05-11 16:31 | NUR ---
detention worker faxed clinical updates to [facility] and [facility]. SW was requested to speak with patient's daughter. SW met with patient and her daughter. Beverly, daughter, was just requesting an update on swing bed referrals. SW explained the last update she had received was that they were reviewing but she would call again to follow up. JESSE contacted Madeline from [facility]. Madeline asked some additional questions that she would need to give to her provider then would get back to the manager social work about if they can accept patient tomorrow. JESSE was notified by [facility] that they are able to accept patient tomorrow. Doc to doc with Dr. Robertson, P# [phone], Nurse to nurse P# [phone]. They would like patient to arrive at their facility around 11 am, so patient would need to leave our hospital around 10 am. SW notified patient and patient's daughter of discharge tomorrow morning. Patient's daughter will be transporting patient and will bring her oxygen to the hospital for the drive to [place]. JESSE contacted Beverly, patient's daughter, and reviewed the IM from Medicare. No questions or concerns. Beverly provided verbal consent for this form. SW will provide patient and daughter with a copy of the form. Discharge plan: [facility]
--- NOTE | 2024-05-11 20:06 | NUR ---
Received report from Vera Camara RN. Vitals are stable at this time. Pt was in bed, was transfered x2 assist to the recliner at shift change. Call light is within reach. Purewick is in place. No drips or IVF's running at this time. Will continue with pt care.
[2024-05-12] VITALS (12 sets, daily range): BP systolic 138–154; BP diastolic 67–79; PULSE 58–79; TEMP 98–98.2; O2SAT 95–100
--- NOTE | 2024-05-12 06:19 | NUR ---
Pt had an uneventful night. Vitals have been stable throughout the night. Purewick in place. No drips or IVF's running at this time. Pt is resting in bed with bed in low position and call light within reach. Will give report to day shift nurse.
[2024-05-12 06:34] LABS: BASO % 0.4 % (0.0-2.0); EOS # 0.2 K/mm3 (0.0-0.7); EOS % 2.4 % (0.0-4.0); GRAN # 5.1 K/mm3 (1.4-6.5); GRAN % 67.1 % (42.2-75.2); LYMPH # 1.2 K/mm3 (1.2-3.4); LYMPH % 16.1 % (20.0-51.0); MEAN CELL VOLUME 89 fl (80.0-100.0); MEAN CORPUSCULAR HGB CONC 33 g/dl (33.0-37.0); MONO % 13.7 % (1.7-9.3); PLATELET COUNT 151 K/mm3 (130-400); RED BLOOD COUNT 2.95 M/mm3 (4.10-5.30); REDCELL DISTRIBUTION WIDTH-CV 13.9 % (11.5-14.5)
[2024-05-12 06:37] LABS: HEMATOCRIT 26.1 % (37.0-47.0); HEMOGLOBIN 8.7 g/dl (12.5-16.0); MEAN CORPUSCULAR HEMOGLOBIN 29 pg (27-31)
[2024-05-12 06:40] LABS: CALCIUM 8.9 mg/dL (8.4-10.2); CREATININE, serum 0.92 mg/dL (0.57-1.11); POTASSIUM 4.7 mEq/L (3.5-4.5)
--- NOTE | 2024-05-12 07:00 | NUR ---
REPORT RECEIVED FROM SHASHANK Sandoval RN. PT HAD NO EVENTS OVERNGIHT AND WAS RESTFULL. NO S/S DISCOMFORT AT THIS TIME. APPEARS TO BE SLEEPING QUIETLY.
[2024-05-12] MEDS ORDERED: PACERONE400 MG PO (09:17)
[2024-05-12] MEDS ORDERED: HUMALOG KW200 UNIT/1 SQ (09:19)
--- NOTE | 2024-05-12 09:26 | NUR ---
YONG provided the copy of the IM for Medicare to patient's daughter/DPOA-HC, Beverly, that they discussed yesterday via telephone. No questions or concerns. YONG attended interdisciplinary clinical rounding with Dr. Munroe. Patient is medically ready for discharge to swing bed. Dr. Munroe completed doc to doc call. Nurse has nurse to nurse number. Yong faxed clinical updates and discharge orders to [facility]. Discharge plan: [facility]
--- NOTE | 2024-05-12 10:35 | NUR ---
PT DISCHARGED WITH DAUGHTER LENA AT THIS TIME. PT TO GO TO [facility]. SWING BED IMMEDIATELY AFTER DISCHARGE. DISCHARGE TEACHING GIVEN TO BOTH AUSTYN AND LENA. PICC LINE TO RIGHT UPPER ARM LEFT IN PLACE PER DR. JAFFE. PT ABLE TO GET UP TO COMMODE X2 ASSIST AND HAVE BOWEL MOVEMENT PRIOR TO LEAVING. REPORT CALLED TO ISHAAN AT [facility]. AT 1111. PT'S DAUGHTER GIVEN DISCHARGE PACKET AND INSTRUCTED TO GIVE TO HOSP. STAFF UPON ARRIVAL.
--- NOTE | 2024-05-14 10:19 | NUR ---
RECEIVED A CALL FROM RN AT [facility] IN [place] STATING THAT PATIENT WAS IN THEIR ER AFTER JUST BEING DISCHARGED FROM OUR FACILITY. ER PROVIDER IS REQUESTING PATIENT RECORDS FROM HER STAY AT OUR FACILITY. THIS AIRCRAFT SERVICER RECEIVED AFAXED DOCUMENT FROM THEIR FACILITY OF A RELEASE OF HEALTH INFORMATION THAT WAS SIGNED BY PATIENT. THIS RN WILL FAX REQUESTED DOCUMENTS.
== END 2024-05-12 13:28 | disposition swing bed (61) | DRG 640 ==
LOC: COL.ER 20:26 → ICU 23:19
PROVIDERS: Emergency Medicine; Internal Medicine; Nurse Practitioner Family; ADMIT Internal Medicine
PROC: 02HV33Z Insertion of Infusion Device into Superior Vena Cava, Percutaneous Approach (ICD-10-PCS; principal; 2024-05-08)
DX: E87.1 Hypo-osmolality and hyponatremia (principal); G93.41 Metabolic encephalopathy; I13.2 Hypertensive heart and chronic kidney disease with heart failure and with stage 5 chronic kidney disease, or end stage renal disease; J96.11 Chronic respiratory failure with hypoxia; I50.32 Chronic diastolic (congestive) heart failure; Z86.73 Personal history of transient ischemic attack (TIA), and cerebral infarction without residual deficits; G40.909 Epilepsy, unspecified, not intractable, without status epilepticus; R25.1 Tremor, unspecified; Z66 Do not resuscitate; E87.8 Other disorders of electrolyte and fluid balance, not elsewhere classified; N18.2 Chronic kidney disease, stage 2 (mild); E87.5 Hyperkalemia; I35.0 Nonrheumatic aortic (valve) stenosis; I48.91 Unspecified atrial fibrillation; E78.5 Hyperlipidemia, unspecified; J44.9 Chronic obstructive pulmonary disease, unspecified; G47.30 Sleep apnea, unspecified; Z79.84 Long term (current) use of oral hypoglycemic drugs; E11.40 Type 2 diabetes mellitus with diabetic neuropathy, unspecified; D64.9 Anemia, unspecified; K21.9 Gastro-esophageal reflux disease without esophagitis; G89.29 Other chronic pain; Z95.0 Presence of cardiac pacemaker; Z79.82 Long term (current) use of aspirin; Z79.02 Long term (current) use of antithrombotics/antiplatelets
CPT/HCPCS: C1751; J1644; J1650; J1953; J7030; J7070; J7131; P9016

== ENCOUNTER 2024-05-19 13:19 | Inpatient (IN) | payer MEDICARE, OTHER ==
[~2024-05-19] VITALS: Ht 152.4 cm; Wt 81.6 kg
[2024-05-19 13:00] VITALS: BP_SYST 156
[~2024-05-19 13:19] MED LIST changes: +HUMALOG KW200 UNIT/1 SQ; +PACERONE400 MG PO
[2024-05-19] MEDS ORDERED: Polyethylene Glycol 3350 17 GM PDS PO PRN (15:15)
[2024-05-19] MEDS ORDERED: Sennosides/Docusate 8.6-50 MG TAB PO PRN (15:15)
[2024-05-19] MEDS ORDERED: Acetaminophen 325 MG TAB PO PRN (15:15)
[2024-05-19] MEDS ORDERED: Naloxone 0.4 MG/ML VIAL IV PRN (15:15)
[2024-05-19] MEDS ORDERED: Docusate Sodium 100 MG CAP PO PRN (15:15)
--- NOTE | 2024-05-19 15:38 | NUR ---
PT TO FACILITY WITH DAUGHTER, TO ROOM VIA W/C. PT ALERT, PIVOT TRANSFER X2 ASSIST TO BED, C/O CHRONIC PAIN IN [place] LE. PT'S RIGHT HEEL HAS A PURPLE BOGGY 1CM MOIST AREA, MEPILEX REPLACED AT THIS TIME. PT COCCYX REDDENED WITHOUT OPEN AREA. PT ORIENTED TO ROOM, GIVEN CALL LT, POSSESSIONS IN CABINET, GLASSES AT BEDSIDE. PT REQUESTS NAP, DENIES OTHER NEEDS, ORIENTED TO MEAL PROCESS AND PLAN OF CARE. PT DENIES NEEDS, DTR AT BEDSIDE, BED ALARM ON, SEIZURE PADS ON. OUTSIDE FACILITY REPORTED LAST SEIZURE 05/14/24.
[2024-05-19 15:48] VITALS: BP 156/76; PULSE 74; TEMP 98.1
[2024-05-19] MEDS ORDERED: Loperamide 2 MG CAP PO PRN (16:00)
[2024-05-19 16:07] VITALS: BP_SYST 156
[2024-05-19] MEDS ORDERED: Albuterol 0.083% Neb Soln 2.5 MG/3 ML UD IH PRN (16:15)
[2024-05-19] MEDS ORDERED: Dextrose (Glucose) 15 GM (4 x 3.75 GM) Chewable TABLET PACK PO PRN (17:30)
[2024-05-19] MEDS ORDERED: Dextrose 50% Water 25 GM/50 ML SYRINGE IV PRN (17:30)
[2024-05-19] MEDS ORDERED: Glucagon 1 MG VIAL IM PRN (17:30)
--- NOTE | 2024-05-19 17:33 | NUR ---
PT'S BLOOD SUGAR WAS 128 PRIOR TO EATING, DENIES ANY COMPLAINTS AT THIS TIME. PT'S SON AT BEDSIDE, CALL LT IN REACH. PT AMBULATING SUCCESSFULLY WITH 1 ASSIST ET WALKER.
--- NOTE | 2024-05-19 17:46 | NUR ---
PER TRANSFERRING FACILITY NURSE, PT'S PICC LINE DRESSING AND CAPS WERE CHANGED ON 05/17/24. FOR THIS NURSE, PURPLE LINE FLUSHED ET HAD GOOD BLOOD RETURN. RED LINE FLUSHED BUT NO BLOOD RETURN NOTED.
[2024-05-19 18:01] VITALS: BP 119/76; PULSE 76; TEMP 98.3
--- NOTE | 2024-05-19 18:36 | NUR ---
PATIENT SITTING UP IN BEDSIDE RECLINER WORKING ON A [place]ET[place]O PAINTING WITH NO FAMILY PRESENT WITH NO ACUTE DISTRSS NOTED. PATIENT ON ROOM AIR. PICC LINE TO RIGTH UPPER ARM INTACT WTIH NO COMPLICATIONS NOTED. BEDSIDE SHIFT REPORT COMPLETED WITH JUSTIN AT THIS TIME. PATIENT DENIES ANY NEEDS. RECLINER LOCKED AND CALL LIGHT WITHIN REACH. CHAIR ALARM ON.
[2024-05-19 20:04] VITALS: BP_SYST 119
[2024-05-19] MEDS ORDERED: Magnesium Oxide 400 MG TAB PO SCH (21:00)
[2024-05-19] MEDS ORDERED: rOPINIRole 0.5 MG TAB PO SCH (21:00)
[2024-05-19] MEDS ORDERED: Amiodarone 200 MG TAB PO SCH (21:00)
[2024-05-19] MEDS ORDERED: Atorvastatin 10 MG TAB PO SCH (21:00)
[2024-05-19] MEDS ORDERED: levETIRAcetam 500 MG TAB PO SCH (21:00)
[2024-05-19] MEDS ORDERED: Primidone 50 MG TAB PO SCH (21:00)
[2024-05-19] MEDS ORDERED: hydrALAZINE 25 MG TAB PO SCH (21:00)
[2024-05-19] MEDS ORDERED: Insulin Lispro (HumaLOG) SQ SCH (21:00)
[2024-05-19] MEDS ORDERED: Gabapentin 400 MG CAP PO SCH (21:00)
[2024-05-19] MEDS ORDERED: amLODIPine 5 MG TAB PO SCH (21:00)
--- NOTE | 2024-05-19 21:10 | NUR ---
PATIENT RESTING IN BEDSIDE RECLINER WITH TV ON WITH NO FAMILY PRESENT WITH NO ACUTE DISTRESS NOTED. PATIENT ON ROOM AIR. PICC LINE TO RIGHT UPPER ARM INTACT WITH NO COMPLICATIONS NOTED. ASSESSMENT AND MEDICATION ADMINISTRATION COMPLETED AT THIS TIME. PATIENT TOLERATED WELL. CUP OF ICE WATER GIVEN TO PATIENT FOR TAKING MEDICATION. PICC LINE FLUSHED WITH BLOOD RETURNED FROM PURPLE AND RED LUMENS. PATIENT REQUESTED HELP TO GO TO BATHROOM, TAKE OFF PANTS, SILVINA HOSE, AND GET INTO BED. PATIENT AMBULATED TO BATHROOM WITH WALKER WITH STAND BY ASSIST. PATIENT VOIDED AND DID OWN ADONIS CARE. PATIENT ASSISTED IN TAKING OFF HER LEGGING PANTS AND SILVINA HOSE. YELLOW SOCKS PLACED BACK ON FEET. PATIENT THEN ASSISTED TO AMBULATE TO BED AND HELPED TO REPOSITION FOR COMFORT. PATIENT REQUESTED LIGHTS BE TURNED OFF AND WAS DONE. PATIENT DENIES ANY OTHER NEEDS. BED IN LOW POSITION WITH WHEELS LOCKED WITH RAILS UP X3 AND CALL LIGHT WITHIN REACH. SEIZURE PRECAUTIONS IN PLACE. BED ALARM ON.
[2024-05-20 05:50] VITALS: BP 134/71; PULSE 61; TEMP 98.1
[2024-05-20 07:20] VITALS: BP_SYST 134
[2024-05-20 07:21] LABS: CALCIUM 7.5 mg/dL (8.4-10.2); CREATININE, serum 1.02 mg/dL (0.57-1.11); POTASSIUM 4.4 mEq/L (3.5-4.5)
--- NOTE | 2024-05-20 07:21 | NUR ---
BEDISIDE SHIFT REPORT RECIEVED AT THIS TIME.
[2024-05-20 07:35] LABS: BASO # 0.1 K/mm3 (0.0-0.2); BASO % 0.9 % (0.0-2.0); EOS # 0.3 K/mm3 (0.0-0.7); EOS % 5.6 % (0.0-4.0); GRAN # 3.7 K/mm3 (1.4-6.5); GRAN % 64.4 % (42.2-75.2); LYMPH % 17.8 % (20.0-51.0); MEAN CELL VOLUME 92 fl (80.0-100.0); MEAN CORPUSCULAR HGB CONC 31 g/dl (33.0-37.0); MEAN PLATELET VOLUME 9.6 fl (7.4-10.4); MONO # 0.6 K/mm3 (0.1-0.6); MONO % 11.1 % (1.7-9.3); PLATELET COUNT 184 K/mm3 (130-400); RED BLOOD COUNT 2.63 M/mm3 (4.10-5.30); REDCELL DISTRIBUTION WIDTH-CV 13.8 % (11.5-14.5)
[2024-05-20 07:46] LABS: HEMATOCRIT 24.2 % (37.0-47.0); HEMOGLOBIN 7.6 g/dl (12.5-16.0); MEAN CORPUSCULAR HEMOGLOBIN 29 pg (27-31)
[2024-05-20] MEDS ORDERED: Furosemide 20 MG TAB PO SCH (09:00)
[2024-05-20] MEDS ORDERED: Sertraline 50 MG TAB PO SCH (09:00)
[2024-05-20] MEDS ORDERED: Losartan 50 MG TAB PO SCH (09:00)
[2024-05-20] MEDS ORDERED: Clopidogrel 75 MG TAB PO SCH (09:00)
--- NOTE | 2024-05-20 09:45 | NUR ---
SHIFT ASSESSMENT COMPLETED AT THIS TIME. PT A&OX4. PT REPORTS 9/10 PAIN. SCHEDULED PAIN MEDICATION ADMINISTERED ALONG WITH OTHERS WITHOUT COMPLICATIONS. PT DENIES NAUSEA AND SOB. PT HAS PICC LINE TO RIGHT UPPER ARM CURRENTLY INT'D. CLEAN, DRY AND INTACT. PT RESTING IN CHAIR UPON ADMISSION. FALL PRECAUTIONS IN PLACE. PT HAS NO FURTHER NEEDS AT THIS TIME.
--- NOTE | 2024-05-20 15:34 | NUR ---
Social work student met with Pt this afternoon. Pt lives in [place] with her daughter, Beverly (p# [phone]) who was at bedside, and her son, Trip, (p# [phone]). Pt sees Mariam for PCP and uses [facility] in [place], [place]. Pt recieves home health for ADLS and gets assistance from her children. Pt has a DPOA and it lists her daughter Beverly and son Trip. Pt uses a variety of DME uncluding a rollator walker, front wheel walker, CPAP, wheelchair, hospital bed, bedside commade, and oxygen. SW student sent updates to [facility]. Discharge plan: home with home health
[2024-05-20] MEDS ORDERED: Ferrous Sulfate 325 MG TAB PO SCH (17:00)
[2024-05-20 17:30] VITALS: BP 157/77; PULSE 61; TEMP 97.4
--- NOTE | 2024-05-20 18:17 | NUR ---
PT RESTING IN CHAIR AT THIS TIME. PT HAS NO NEEDS OR CONCERNS.
[2024-05-20 18:40] VITALS: BP_SYST 157
[2024-05-20 20:07] VITALS: BP 147/80; PULSE 70; TEMP 97.5
[2024-05-21 05:59] VITALS: BP 137/71; PULSE 61; TEMP 98.1
[2024-05-21 07:00] VITALS: BP_SYST 137
--- NOTE | 2024-05-21 07:45 | NUR ---
PT A&OX4. HELPED PT GO TO BATHROOM AND PT IS NOW UP IN RECLINER EATING BREAKFAST. SHIFT ASSESSMENT COMPLETE AND MEDICATIONS ADMINISTERED. VSS. NO C/O PAIN AT THIS TIME. UP WITH ASSIST X1 W/ WALKER. PT AWARE OF THERAPY SCHEDULE FOR THE DAY. ON SEIZURE AND FALL PRECAUTIONS. FLUSHED PICC IN JADA AND BLOOD RETURN NOTED. NO S/S OF COMPLICATIONS. DRESSING CDI. NO FURTHER NEEDS AT THIS TIME. CALL LIGHT WITHIN REACH AND CHAIR ALARM ON.
[2024-05-21] MEDS ORDERED: Cyanocobalamin (Vit B-12) 1,000 MCG TAB PO SCH (09:00)
[2024-05-21] MEDS ORDERED: Folic Acid 1 MG TAB PO SCH (09:00)
--- NOTE | 2024-05-21 14:37 | NUR ---
Data: Spiritual care visit attempted. Patient has a visitor. Declined at this time. Would appreciate another visit at another time. Assessment: None at this time. Plan of Care: Steward/Stewardess left a message requesting the weekday Steward/Stewardess visit on Thursday.
[2024-05-21 17:27] VITALS: BP 153/73; PULSE 63; TEMP 98.6
[2024-05-21 19:13] VITALS: BP_SYST 153
--- NOTE | 2024-05-21 20:20 | NUR ---
Patient assessed at this time, watching football game on TV, see shift assessment, reports pain to her back and legs, scheduled MS contin given, with PICC to right upper arm, dressing clean, dry and intact, denies further needs, call light and personal items within reach, will continue to monitor.
[2024-05-22 05:37] VITALS: BP 134/67; PULSE 68; TEMP 98
[2024-05-22 07:00] VITALS: BP_SYST 134
--- NOTE | 2024-05-22 10:30 | NUR ---
PT A&OX4. VSS. PT SITTING ON SIDE OF BED EATING BREAKFAST. JUST WOKE UP - WANTED TO SLEEP IN TODAY. NO C/O PAIN AT THIS TIME. SHIFT ASSESSMENT COMPLETE AND MEDICATIONS ADMINISTERED. ASSESSED STOOL FOR BLOOD AND DIDN'T SEE ANY SIGN OF IT. PICC IN JADA INTACT AND DRESSING IS CDI. FLUSHED AND GOT BLOOD RETURN. CHANGED OUT CAPS. PT IS UP WITH ASSIST X1 W/ WALKER. NO FURTHER NEEDS AT THIS TIME. CALL LIGHT WITHIN REACH.
[2024-05-22 17:30] VITALS: BP 146/73; PULSE 72; TEMP 98.3
[2024-05-22 18:45] VITALS: BP_SYST 146
[2024-05-22 20:40] VITALS: BP 158/64; PULSE 66; TEMP 98.2
--- NOTE | 2024-05-22 20:50 | NUR ---
Patient resting in bed. Rates pain at 9/10, scheduled pain meds given. Needs met. Assessment complete. PICC to right upper arm flushes easily with good blood return. Call light and personal items in reach. Bed in low position and bed alarm on.
[2024-05-23] VITALS (7 sets, daily range): BP systolic 95–144; BP diastolic 52–72; PULSE 60–85; TEMP 97.8–98.5
[2024-05-23 06:37] LABS: BASO # 0.1 K/mm3 (0.0-0.2); BASO % 0.8 % (0.0-2.0); EOS # 0.3 K/mm3 (0.0-0.7); EOS % 4.4 % (0.0-4.0); GRAN # 4.3 K/mm3 (1.4-6.5); GRAN % 65.4 % (42.2-75.2); LYMPH # 1.3 K/mm3 (1.2-3.4); LYMPH % 19.5 % (20.0-51.0); MEAN CELL VOLUME 92 fl (80.0-100.0); MEAN CORPUSCULAR HGB CONC 32 g/dl (33.0-37.0); MEAN PLATELET VOLUME 9.2 fl (7.4-10.4); MONO # 0.6 K/mm3 (0.1-0.6); MONO % 9.7 % (1.7-9.3); PLATELET COUNT 215 K/mm3 (130-400); RED BLOOD COUNT 2.76 M/mm3 (4.10-5.30); REDCELL DISTRIBUTION WIDTH-CV 14.2 % (11.5-14.5)
[2024-05-23 06:42] LABS: HEMATOCRIT 25.4 % (37.0-47.0); HEMOGLOBIN 8.1 g/dl (12.5-16.0); MEAN CORPUSCULAR HEMOGLOBIN 29 pg (27-31)
--- NOTE | 2024-05-23 16:33 | NUR ---
social worker delinquency prevention scheduled family meeting for Thursday at 10:15 am via telephone with patient's son and daughter. JESSE notified CORINE Moyer director. JES[facility] Bedolla [facility] Discharge plan: Home with Home Health
--- NOTE | 2024-05-23 20:27 | NUR ---
FLORENCIO IS AWAKE AND ALERT ,SITTING UP AT IN BED. CALL LGT WITHIN REACH. FALL PRECAUTIONS IN PLACE. BED ALARM ON.
--- NOTE | 2024-05-23 21:50 | NUR ---
Patient resting in chair. Rates pain at 9/10, scheduled pain meds given. Assisted patient to bathroom and to bed. Assessment compelte. PICC to right upper arm flushes easily with good blood return from both ports. Call light and persoanl items in reach. Bed in low position and bed alarm on.
[2024-05-24 05:57] VITALS: BP 105/62; PULSE 65; TEMP 97.1
--- NOTE | 2024-05-24 06:00 | NUR ---
Blood sugar of 73 this am, ONubia provided.
[2024-05-24 07:00] VITALS: BP_SYST 105
--- NOTE | 2024-05-24 08:00 | NUR ---
PT SITTING UP IN CHAIR BEDSIDE. AAOX4. HEAD TO TOE ASSESSMENT COMPLETE. MORNING MEDS GIVEN. PAIN MEDS GIVEN FOR BACK PAIN. CHAIR ALARM ON. CALL LIGHT IN REACH.
[2024-05-24] MEDS ORDERED: Amiodarone 200 MG TAB PO SCH (09:00)
--- NOTE | 2024-05-24 09:24 | NUR ---
PICCdressing was done this morning. PICC line was placed here before she was transferred to another facility. The PICC line was at 0cm at insertion site when she left. She was admitted back here to [facility] and the PICC was out 7cm upon her arrival. No signs of complication at this time. Primary nurse notified.
--- NOTE | 2024-05-24 11:12 | NUR ---
Admission QIM scores were reviewed by the team. Code of 6 chosen for eating was determined by team discussion to be the most usual performance before interventions for this patient during the assessment period. Code of 4 chosen for toilet transfers was determined by team discussion to be the most usual performance for this patient during the discharge assessment period. Code of 3 for car transfer was determined by team discussion to be the most usual performance before interventions for this patient during the assessment period.--Comfort Barber, PD
[2024-05-24 16:37] VITALS: BP 136/74; PULSE 60; TEMP 98
[2024-05-24 18:53] VITALS: BP_SYST 136
--- NOTE | 2024-05-24 20:10 | NUR ---
PT RESTING IN CHAIR ALERT AND ORIENTEDX4. ASSESSED PT. RATES PAIN 9/10 IN THE BACK AND LEGS. MEPILEX INTACT ON HEEL. GAVE NIGHT PILLS. GOT PT UP TO THE BATHROOM WITH 1 ASSIST AND GAIT BELT AND THEN TO BED. NO OTHER COMPLAINTS AT THIS TIME. CALL LIGHT WITHIN REACH.
--- NOTE | 2024-05-24 23:50 | NUR ---
RECEIVED REPORT FROM [facility]AN[facility]. PATIENT RESTING QUIETLY IN BED. NO NEEDS AT THIS TIME.
[2024-05-25 05:57] VITALS: BP 122/81; PULSE 62; TEMP 98.2
[2024-05-25 07:38] VITALS: BP_SYST 122
--- NOTE | 2024-05-25 08:00 | NUR ---
Pt. sitting up at bedside eating breakfast. Pt. is A&OX3, assessment complete PICC to rt. upper arm patent. Pt. reports back pain at an 8 on pain scale, giving pain meds per orders. Pt. denies further needs. Call light within reach.
--- NOTE | 2024-05-25 13:49 | NUR ---
child care worker attended IPR team conference to discuss patient's progress and discharge plan. Patient is scheduled to discharge on May 27 with [facility]. SW attended the family meeting with patient, IPR team, and Edward (children) via telephone. Patient is ready to go home on Thursday with home health. SW met with patient to review the IPR team conference notes. SW provided a copy of the notes. No concerns at this time. Patient reports she is excited to get home on Thursday. SW explained she would be back tomorrow to review a form with her and she would contact her family to review it as well. Patient understood and had no questions at this time. Discharge plan: Home with home health - [facility]
[2024-05-25 17:30] VITALS: BP 138/75; PULSE 61; TEMP 97.7
[2024-05-25 19:00] VITALS: BP_SYST 138
[2024-05-26 05:03] VITALS: BP 102/61; PULSE 63; TEMP 98
--- NOTE | 2024-05-26 05:38 | NUR ---
am labs obtained from PICC line in [facility] using aseptic technique without difficulty.
[2024-05-26 06:13] LABS: BASO % 0.4 % (0.0-2.0); EOS # 0.3 K/mm3 (0.0-0.7); EOS % 4.8 % (0.0-4.0); GRAN # 4.6 K/mm3 (1.4-6.5); GRAN % 68.9 % (42.2-75.2); LYMPH # 1.1 K/mm3 (1.2-3.4); LYMPH % 16.5 % (20.0-51.0); MEAN CELL VOLUME 94 fl (80.0-100.0); MEAN CORPUSCULAR HGB CONC 31 g/dl (33.0-37.0); MEAN PLATELET VOLUME 9.5 fl (7.4-10.4); MONO # 0.6 K/mm3 (0.1-0.6); MONO % 9.1 % (1.7-9.3); PLATELET COUNT 214 K/mm3 (130-400); RED BLOOD COUNT 2.79 M/mm3 (4.10-5.30); REDCELL DISTRIBUTION WIDTH-CV 14.8 % (11.5-14.5)
[2024-05-26 06:18] LABS: HEMATOCRIT 26.1 % (37.0-47.0); HEMOGLOBIN 8.1 g/dl (12.5-16.0); MEAN CORPUSCULAR HEMOGLOBIN 29 pg (27-31)
[2024-05-26 06:25] LABS: CALCIUM 8.2 mg/dL (8.4-10.2); CREATININE, serum 1.26 mg/dL (0.57-1.11); POTASSIUM 5.2 mEq/L (3.5-4.5)
[2024-05-26 07:00] VITALS: BP_SYST 102
--- NOTE | 2024-05-26 08:00 | NUR ---
PT A&OX4. VSS. NO C/O PAIN AT THIS TIME. PT UP W ASSIST X1 W/ WALKER. SHIFT ASSESSMENT COMPLETE AND MEDICATIONS ADMINISTERED. PT CURRENTLY UP IN RECLINER EATING BREAKFAST. NO FURTHER NEEDS AT THIS TIME. CALL LIGHT WITHIN REACH.
[2024-05-26] MEDS ORDERED: Sodium Zirconium Cyclosilicate for Oral Susp 10 GM PACKET PO ONE (13:30)
--- NOTE | 2024-05-26 14:16 | NUR ---
flare worker attempted to meet with patient but she was sound asleep. SW contacted patient's DPOA-HC, Beverly, via telephone. SW reviewed the IM from Medicare. Beverly understood and had no questions or concerns. Beverly provided verbal consent for this form. JESSE made copy, placed original in chart and provided copy to patient. No further questions or concerns. JESSE faxed clinical updates to [facility]. [facility] Called and reported they need new orders for patient. JESSE explained they would send those orders tomorrow when patient is ready for discharge. Discharge plan: Home with Home Health - [facility] - May 27
[2024-05-26 16:51] VITALS: BP 158/97; PULSE 63; TEMP 97.8
[2024-05-26 18:49] VITALS: BP_SYST 158
--- NOTE | 2024-05-26 19:39 | NUR ---
PT SLEEPING IN CHAIR, EASILY AROUSED. AMBULATED TO TOILET, SBA W/ WALKER. GLASSES IN PLACE. REMOVED BILATERAL SILVINA HOSE FOR SLEEP. CHANGED INTO [facility]. PT STATES PAIN 9/10 BUT WANTS TO HOLD OFF ON PAIN MEDS UNTIL SHE IS READY TO GO TO SLEEP. NO OTHER CONCERNS AT THIS TIME.
--- NOTE | 2024-05-27 00:39 | NUR ---
PT REQUESTING SNACK AND WATER BUT CONCERNED ABOUT BLOOD SUGAR LEVELS. PT CONCERNED THAT HER OWN SELF MONITOR IS NOT READING CORRECTLY. BS 159. SNACK GIVEN.
[2024-05-27 05:14] VITALS: BP 145/74; PULSE 65; TEMP 98.3
--- NOTE | 2024-05-27 05:20 | NUR ---
PT O2 SATS IN HIGH 80s. PT PLACED IN HIGH WEIR'S POSITION AND ENCOURAGED DEEP BREATHING. O2 SAT NOW AT 94%. NO FURTHER CONCERNS.
--- NOTE | 2024-05-27 05:52 | NUR ---
AM labs drawn from PICC line at this time. Flush well with good blood return. Patient tolerated well.
[2024-05-27 06:34] LABS: CALCIUM 8.2 mg/dL (8.4-10.2); CREATININE, serum 1.12 mg/dL (0.57-1.11)
[2024-05-27 07:00] VITALS: BP_SYST 145
--- NOTE | 2024-05-27 08:30 | NUR ---
Patient laying in bed sleeping, easily awakened with verbal command. A&Ox4. VSS. IV CDI. Patient 1xassist with gait belt and walker to the bathroom. Denies pain and discomfort. Call light within reach. Bed alarm on
[2024-05-27] MEDS ORDERED: FERROUS SU325 MG/TAB PO (09:13)
[2024-05-27] MEDS ORDERED: PACERONE400 MG PO (09:13)
[2024-05-27] MEDS ORDERED: B-121000 MCG PO (09:15)
[2024-05-27] MEDS ORDERED: FOLIC ACID 11 MG/TA1 PO (09:15)
[2024-05-27] MEDS ORDERED: Sodium Zirconium Cyclosilicate for Oral Susp 10 GM PACKET PO ONE (10:00)
[2024-05-27] MEDS ORDERED: GLUCOPHAGE500 MG/TAB PO (10:00)
--- NOTE | 2024-05-27 12:56 | NUR ---
Discharge paperwork reviewed with the patient and family at the bedside. PAtient verbalized an understanding. PAtient already in a wheelchair. Nursing staff taking the patient with personal belongings to awaiting vehicle. PICC line removed by BOBBY Canela. No further needs expressed.
--- NOTE | 2024-05-27 13:53 | NUR ---
Discharge QIM scores were reviewed by the team. Code of 6 chosen for upper body dressing was determined by team discussion to be the most usual performance for this patient during the discharge assessment period. Code of 6 chosen for sit to lying was determined by team discussion to be the most usual performance for this patient during the discharge assessment period. Code of 6 chosen for sit to stand was determined by team discussion to be the most usual performance for this patient during the discharge assessment period. Code of 6 chosen for walking 10 feet was determined by team discussion to be the most usual performance for this patient during the discharge assessment period. Code of 6 chosen for walking 50 feet w/ 2 turns was determined by team discussion to be the most usual performance before interventions for this patient during the discharge assessment period.--Comfort Barber, PD
--- NOTE | 2024-05-27 15:28 | NUR ---
floorworker distributor faxed clinical updates and discharge orders to [facility]. Discharge plan: Home with HOme health - [facility]
[2024-06-01] MEDS ORDERED: FENTANYL 25 MCG TD (09:36)
[2024-06-01] MEDS ORDERED: SYSTANE 0.4%-0.1 SOL OU (09:37)
[2024-06-01] MEDS ORDERED: ROXANOL 20MG20 MG/ML SL (09:37)
[2024-06-01] MEDS ORDERED: TRANSDERM-0.5 MG/21 TD (09:37)
[2024-06-01] MEDS ORDERED: DULCOLAX S10 MG/SUPP RC (09:37)
[2024-06-01] MEDS ORDERED: ATIVAN 1MG T1 MG/TAB PO (09:37)
== END 2024-05-27 12:57 | disposition home health service (06) | DRG 948 ==
PROVIDERS: Internal Medicine; ADMIT Physical Medicine & Rehabilitation Sports Medicine
DX: R53.81 Other malaise (principal); E87.1 Hypo-osmolality and hyponatremia; G93.40 Encephalopathy, unspecified; J44.9 Chronic obstructive pulmonary disease, unspecified; G89.29 Other chronic pain; M54.9 Dorsalgia, unspecified; D63.1 Anemia in chronic kidney disease; F32.A Depression, unspecified; Z66 Do not resuscitate; E11.22 Type 2 diabetes mellitus with diabetic chronic kidney disease; E11.40 Type 2 diabetes mellitus with diabetic neuropathy, unspecified; I12.9 Hypertensive chronic kidney disease with stage 1 through stage 4 chronic kidney disease, or unspecified chronic kidney disease; K21.9 Gastro-esophageal reflux disease without esophagitis; G47.33 Obstructive sleep apnea (adult) (pediatric); R29.6 Repeated falls; E87.5 Hyperkalemia; N18.2 Chronic kidney disease, stage 2 (mild); G25.81 Restless legs syndrome; R26.89 Other abnormalities of gait and mobility; G40.909 Epilepsy, unspecified, not intractable, without status epilepticus; Z79.82 Long term (current) use of aspirin; Z79.899 Other long term (current) drug therapy; Z79.891 Long term (current) use of opiate analgesic; Z79.02 Long term (current) use of antithrombotics/antiplatelets; Z79.52 Long term (current) use of systemic steroids; Z86.73 Personal history of transient ischemic attack (TIA), and cerebral infarction without residual deficits; Z95.2 Presence of prosthetic heart valve; Z74.09 Other reduced mobility; Z85.118 Personal history of other malignant neoplasm of bronchus and lung; Z92.3 Personal history of irradiation
CPT/HCPCS: A9270; J1650; J1815